=== PATIENT | male | born 1980 | race Caucasian/White ===

== ENCOUNTER 2021-03-11 10:49 | Outpatient (CLI) | payer MEDICARE, MEDICAID, SELFPAY ==
--- NOTE | 2021-03-11 10:55 | XR_ITS ---
WS: [id number] CHEST 2 VIEWS HISTORY: POSITIVE TB TEST COMPARISON: 07/22/[address] 06/25/2018 Lungs: Increased soft tissue along the lateral thorax, bilateral. After reviewing the prior CT from this is most likely increased pleural fat and not fluid. On the lateral projection no eviden ce for an effusion. No pneumonia. Cardiac size: Normal. Mediastinum/Aorta: Normal mediastinum. Bones: Normal. XR/XR chest 2V* [id number] IMPRESSION: No pneumonia. Prominent pleural fat bilaterally. This was also noted on prior CT of 06/25/2018 .
== END 2021-03-11 10:50 | disposition home or self-care (01) ==
PROVIDERS: Visit Provider Family Medicine
DX: R76.11 Nonspecific reaction to tuberculin skin test without active tuberculosis (principal)
CPT/HCPCS: 71046

== ENCOUNTER 2022-07-28 08:59 | Outpatient (CLI) | payer MEDICARE, MEDICAID, SELFPAY ==
--- NOTE | 2022-07-28 09:15 | FL_ITS ---
WS: [id number] Modified barium swallow, 07/28/2022 Clinical Data: Other dysphagia Comparison: None. Fluoroscopy time: 1min [id number] # of spot films: 3 Findings: The patient initiated oral propulsion of the food and barium without hesitation. The barium and food mixtures moved normally into the hypopharynx and were propelled rapidly into the esophagus. There was no aspiration or penetration. There is no pooling or hesitation. The barium tablet moved rapidly fro m the oral cavity into the hypopharynx through the esophagus and into the stomach. FL/FL barium swallow modifd [id number] Impression: Normal modified barium swallow.
== END 2022-07-28 09:00 | disposition home or self-care (01) ==
LOC: RAD 09:01
PROVIDERS: Visit Provider Nurse Practitioner Family
DX: R13.19 Other dysphagia (principal)
CPT/HCPCS: 74230; 92611